=== PATIENT | male | born 1990 | race Caucasian/White ===

== ENCOUNTER 2017-12-04 14:46 | Emergency (ER) | payer OTHER ==
[~2017-12-04] VITALS: Ht 10 cm; Wt 61.2 kg
[~2017-12-04 14:46] MED LIST: ALBU8.5H8 INH; CIPR500T94 PO; CLIN300C8 PO; LEVO750T31 PO
[2017-12-04 14:55] VITALS: BP 129/76
--- NOTE | 2017-12-04 15:11 | PHYS DOC ---
Past History Past Medical History: No Pertinent History Past Surgical History: No Surgical History Alcohol Use: Occasionally Drug Use: None Adult General Chief Complaint Chief Complaint: Neck Pain HPI HPI Patient is a 27 year old M who presents with several intermittent episodes of left-sided neck pain that started just prior to arrival. He currently has no symptoms. He denied any other associated symptoms. He denied injury. He denies pain radiation. He has no exacerbating or alleviating factors. He states that he has had similar symptoms in his lower back but never in his neck. Review of Systems Review of Systems Constitutional: Denies fever or chills [] Eyes: Denies change in visual acuity, redness, or eye pain [] HENT: Denies nasal congestion or sore throat [] Respiratory: Denies cough or shortness of breath [] Cardiovascular: No additional information not addressed in HPI [] GI: Denies abdominal pain, nausea, vomiting, bloody stools or diarrhea [] : Denies dysuria or hematuria [] Musculoskeletal: Denies back pain or joint pain [] Integument: Denies rash or skin lesions [] Neurologic: Denies headache, focal weakness or sensory changes [] Endocrine: Denies polyuria or polydipsia [] All other systems were reviewed and found to be within normal limits, except as documented in this note. Family History Family History No pertinent family medical history was reported Current Medications Current Medications Current medications were reviewed Allergies Allergies Allergies Coded Allergies Type Severity Reaction Last Updated Verified Penicillins Allergy Intermediate 09/12/16 No Sulfa (Sulfonamide Antibiotics) Allergy Intermediate 09/12/16 No amoxicillin Allergy Intermediate 09/12/16 No Physical Exam Physical Exam Constitutional: Well developed, well nourished, no acute distress, non-toxic appearance. [] HENT: Normocephalic, atraumatic, bilateral external ears normal, oropharynx moist, no oral exudates, nose normal. [] Eyes: EOMI, conjunctiva normal, no discharge. [] Neck: Normal range of motion, no tenderness, supple, no stridor. [] Cardiovascular:Heart rate regular rhythm, no murmur [] Lungs & Thorax: Bilateral breath sounds clear to auscultation [] Abdomen: Bowel sounds normal, soft, no tenderness, no masses, no pulsatile masses. [] Skin: Warm, dry, no erythema, no rash. [] Back: No tenderness, no CVA tenderness. [] Extremities: No tenderness, no cyanosis, no clubbing, ROM intact, no edema. [] Neurologic: Alert and oriented X 3, normal motor function, normal sensory function, no focal deficits noted. [] Psychologic: Affect normal, judgement normal, mood normal. [] Current Patient Data Vital Signs Vital Signs Date Time Temp Pulse Resp B/P (MAP) Pulse Ox O2 Delivery O2 Flow Rate FiO2 12/04/17 14:55 97.4 90 16 99 Room Air EKG EKG [] Radiology/Procedures Radiology/Procedures [] Course & Med Decision Making Course & Med Decision Making Pertinent Labs and Imaging studies reviewed. (See chart for details) He has no current symptoms. Dragon Disclaimer Dragon Disclaimer This electronic medical record was generated, in whole or in part, using a voice recognition dictation system. Departure Departure: Impression: Primary Impression: Neck pain Disposition: HOME, SELF-CARE Condition: STABLE Referrals: YRN STARR MD (PCP) Patient Instructions: Back Exercises Additional Instructions: Cheo was seen in the emergency department for neck pain. No emergency medical condition was found on history or physical exam. He was advised follow-up with his primary care doctor as needed for further management. REINA HANKS MD Dec 04, 2017 15:11
== END 2017-12-04 15:22 | disposition home or self-care (01) ==
LOC: ER 14:46
DX: M54.2 Cervicalgia (principal); Z88.0 Allergy status to penicillin; Z88.2 Allergy status to sulfonamides; Z88.1 Allergy status to other antibiotic agents
CPT/HCPCS: 99281